=== PATIENT | female | born 1995 | race American Indian/Alaskan Native ===

== ENCOUNTER 2019-06-20 16:31 | Emergency (ER) | payer SELFPAY ==
[2019-06-20 16:53] VITALS: BP 137/87
--- NOTE | 2019-06-20 16:54 | Event Note ---
ED Screening Note Date of service: 06/20/19 Time: 16:52 ED Screening Note: 23 y/o female come for leg spasms for 1 week mostly at night now during the day. LMP 06/04/19 This initial assessment/diagnostic orders/clinical plan/treatment(s) is/are subject to change based on patients health status, clinical progression and re- assessment by fellow clinical providers in the ED. Further treatment and workup at subsequent clinical providers discretion. Patient/guardian urged not to elope from the ED as their condition may be serious if not clinically assessed and managed. Initial orders include:
--- NOTE | 2019-06-20 20:50 | Emergency Department Report ---
ED General Adult HPI - General Chief complaint: Extremity Injury, Lower Stated complaint: LFT LEG NERVE PAIN Time Seen by Provider: 06/20/19 20:37 Source: patient Mode of arrival: Ambulatory Limitations: No Limitations - History of Present Illness Initial comments: 23-year-old female past medical history of epilepsy was relocated from [place] and been here for almost 30 days since emerge department with her onto complaining of various episodes of leg shaking to her left leg tapping on the and 12 of June. States she didn't take her Keppra 500 mg as directed and also is started on Zoloft couple days ago. She reports no fever, chills, sweats, chest pain or provocative palpitations. No numbness or tingling. She states she does admit to utilization of EtOH off and on since May 30 in conjunction with THC as well as occasional ecstasy tablets Radiation: non-radiation Quality: burning Consistency: constant Improves with: none, immobilization Associated Symptoms: denies other symptoms Treatments Prior to Arrival: none - Related Data Previous Rx's Medication Instructions Recorded Last Taken Type levETIRAcetam [Keppra TAB] 1,000 mg PO BID #120 tablet 06/21/19 Unknown Rx ED Review of Systems ROS: Stated complaint: LFT LEG NERVE PAIN Other details as noted in HPI Comment: All other systems reviewed and negative ED Past Medical Hx - Social History Smoking Status: Never Smoker Substance Use Type: None - Medications Home Medications: Home Medications Medication Instructions Recorded Confirmed Last Taken Type levETIRAcetam [Keppra TAB] 1,000 mg PO BID #120 tablet 06/21/19 Unknown Rx ED Physical Exam - General Limitations: No Limitations General appearance: alert, in no apparent distress - Head Head exam: Present: atraumatic, normocephalic - Eye Eye exam: Present: normal appearance, PERRL, EOMI. Absent: scleral icterus, conjunctival injection Pupils: Present: normal accommodation - ENT ENT exam: Present: mucous membranes moist - Neck Neck exam: Present: normal inspection - Respiratory Respiratory exam: Present: normal lung sounds bilaterally. Absent: respiratory distress - Cardiovascular Cardiovascular Exam: Present: regular rate, normal rhythm. Absent: systolic murmur, diastolic murmur, rubs, gallop - GI/Abdominal GI/Abdominal exam: Present: soft, normal bowel sounds - Extremities Exam Extremities exam: Present: normal inspection - Back Exam Back exam: Present: normal inspection, full ROM. Absent: CVA tenderness (L) - Neurological Exam Neurological exam: Present: alert, oriented X3, CN II-XII intact, normal gait. Absent: motor sensory deficit - Psychiatric Psychiatric exam: Present: normal affect, normal mood. Absent: anxious, flat affect, manic - Skin Skin exam: Present: warm, dry, intact, normal color. Absent: rash ED Course Vital Signs 06/20/19 16:51 Temperature 98.2 F Pulse Rate 83 Respiratory 16 Rate Blood Pressure 137/87 O2 Sat by Pulse 100 Oximetry ED Medical Decision Making - Lab Data Result diagrams: 06/20/19 20:51 06/20/19 20:51 - Medical Decision Making 23-year-old -Surinamese female with past medical history of depression, recently started on Zoloft having focal leg shaking-type issues WHICH MAY BE LIVESEY FOR HER. IT IS UNCLEAR, ALTHOUGH SHE DOES STATE SHE'S HAD SOME IN THE PAST, PREVIOUSLY. NO ACUTE DISTRESS. HER CURRENT NOT WITNESSED WHILE IN THE EMERGENCY DEPARTMENT. SHE IS ON KEPPRA, BUT RUNNING LOW ON BEEN ON MEDICATION AND HAS BEEN INDULGING AND ILLICIT DRUG USE. WAS ALSO MAY BE COMPROMISING HER SEIZURE THRESHOLD. THIS WAS DISCUSSED WITH HER IN GREAT DETAIL TO DECREASED USE OF CT SCANS WERE NORMAL AND LABORATORY DATA DID [id number] IN THE CAUSES WELL. SHE IS MINIMALLY ENCOURAGED TO TAKE HER MEDICATIONS PRESCRIBED AND WILL INCREASE HER KEPPRA DOSE FROM 500 TWICE A DAY TO 1 G IN THE P.M. AND 500 A.M. UNTIL SHE CAN TOLERATE 1 G TWICE A DAY. CONJUNCTION DISCONTINUE POSSIBLE to discontinue the seizure lowering threshold behaviors. Also significant instructed to follow up with neurology as she has relocated to this region and this had not yet set up with her primary care provider or neurologist. - Differential Diagnosis epilepsy, focal seizures, restless leg syndrome, muscle spasms, anxiety Critical care attestation.: If time is entered above; I have spent that time in minutes in the direct care of this critically ill patient, excluding procedure time. ED Disposition Clinical Impression: Seizure disorder, Illicit drug use Disposition: -01 TO HOME OR SELFCARE Is pt being admited?: No Does the pt Need Aspirin: No Condition: Stable Instructions: Recurrent Seizures Adult (ED), Epilepsy (ED), Polysubstance Abuse (ED) Additional Instructions: Please be sure taking medication as prescribed and increase the Keppra to 2 pills in the p.m. one when necessary one has been discussed. Please laryngeal or utilization of illicit drugs and alcohol as this significantly lowering her seizure threshold and esophagojejunostomy be likely related Prescriptions: levETIRAcetam [Keppra TAB] 1,000 mg PO BID #120 tablet Referrals: [facility] MD DELTA [Primary Care Provider] - 3-5 Days JULEE RAMIREZ MD [Staff Physician] - 3-5 Days QIAN FELIPE MD [Referring] - 3-5 Days ANTONI MACHADO [PHYSICIAN [employer] STOCK CLERK STUDENT] - 3-5 Days JIMMY ED PAZ MD [Staff Physician] - 3-5 Days TIAN LEOS [Staff Physician] - 3-5 Days
[2019-06-20 21:12] LABS: Basophils # (Auto) 0.1 K/mm3 (0.0-0.1); Basophils % (Auto) 0.9 % (0.0-1.8); Eosinophils # (Auto) 0.1 K/mm3 (0.0-0.4); Eosinophils % (Auto) 1.3 % (0.0-4.3); Hematocrit 40.8 % (30.3-42.9); Hemoglobin 13.5 gm/dl (10.1-14.3); Lymphocytes # (Auto) 3.4 K/mm3 (1.2-5.4); Lymphocytes % (Auto) 44.9 % (13.4-35.0); Mean Corpuscular HGB Conc 33 % (30-34); Mean Corpuscular Volume 87 fl (79-97); Monocytes # (Auto) 0.5 K/mm3 (0.0-0.8); Monocytes % (Auto) 6.8 % (0.0-7.3); Platelet Count 243 K/mm3 (140-440); Red Blood Count 4.67 M/mm3 (3.65-5.03); Red Cell Distribution Width 14.3 % (13.2-15.2)
[2019-06-20] MEDS ORDERED: ATIVAN IM STA (21:29)
[2019-06-20 21:31] LABS: Alanine Aminotransferase 9 units/L (7-56); Albumin 4.7 g/dL (3.9-5); BUN/Creatinine Ratio 15; Blood Urea Nitrogen 9 mg/dL (7-17); Calcium 9.4 mg/dL (8.4-10.2); Hemolysis Index 28
--- NOTE | 2019-06-20 22:14 | Cat Scan Report ---
CT head/brain wo con INDICATION: seizures. TECHNIQUE: Routine CT head without contrast. Sagittal and coronal reformatted images were obtained. A ll CT scans at this location are performed using CT dose reduction for ALARA by means of automated ex posure control. COMPARISON: None. FINDINGS: BRAIN / INTRACRANIAL CONTENTS: No acute hemorrhage, mass effect, midline shift, hydrocephalus, or acu te, large territorial infarct. No chronic infarct or focal atrophy. Normal brain volume and ventricul ar/sulcal size for age. No significant white matter abnormality. CRANIOCERVICAL JUNCTION: No significant abnormality. ORBITS: No significant abnormality of visualized orbits. SINUSES / MASTOIDS: No significant abnormality of the visualized paranasal sinuses or mastoid air luis ls. ADDITIONAL FINDINGS: None. IMPRESSION: Normal nonenhanced CT scan of the brain. Signer Name: Abhi Boland MD Signed: 06/20/2019 10:09 PM Workstation Name: [id number]
[2019-06-21 01:03] LABS: Bilirubin,Urine NEG (Negative); Blood,Urine NEG (Negative); Color,Urine Straw (Yellow); Protein,Urine <15 mg/dL mg/dL (Negative); Urobilinogen,Urine < 2.0 mg/dL (<2.0)
[2019-06-21 01:04] LABS: HCG Qualitative,Urine Negative (Negative)
== END 2019-06-21 02:00 | disposition home or self-care (01) ==
LOC: ED 16:31
DX: G40.909 Epilepsy, unspecified, not intractable, without status epilepticus (principal); F19.90 Other psychoactive substance use, unspecified, uncomplicated
CPT/HCPCS: 36415; 70450; 80053; 81001; 81025; 85025; 96372; 99284; J2060

== ENCOUNTER 2019-06-24 16:07 | Emergency (ER) | payer OTHER ==
--- NOTE | 2019-06-24 16:40 | Emergency Department Report ---
Blank Doc - Documentation Documentation: This is a 23-year-old female that presents with SI. This initial assessment/diagnostic orders/clinical plan/treatment(s) is/are subject to change based on patient's health status, clinical progression and re- assessment by fellow clinical providers in the ED. Further treatment and workup at subsequent clinical providers discretion. Patient/guardians urged not to elope from the ED as their condition may be serious if not clinically assessed and managed. Initial orders include: 1- Patient sent to MAIN ED for further evaluation and treatment 2- key punch teacher was notified to have patient be brought back [place]. 3- RN was notified to keep patient as close range and observation until room available 4- Patient presents with substantial risk of imminent harm to self, appears to be so unable to care for his/her own physical health and safety as to create an imminently life-endangering crisis, and has committed/expressed life endangering crisis to self. Due to this and other complaints, patient is put on 1013.
[2019-06-24 16:58] LABS: Basophils # (Auto) 0.1 K/mm3 (0.0-0.1); Basophils % (Auto) 1.1 % (0.0-1.8); Eosinophils # (Auto) 0.1 K/mm3 (0.0-0.4); Eosinophils % (Auto) 0.9 % (0.0-4.3); Hematocrit 39.4 % (30.3-42.9); Lymphocytes # (Auto) 2.5 K/mm3 (1.2-5.4); Lymphocytes % (Auto) 29.7 % (13.4-35.0); Mean Corpuscular HGB Conc 33 % (30-34); Mean Corpuscular Volume 87 fl (79-97); Monocytes # (Auto) 0.6 K/mm3 (0.0-0.8); Monocytes % (Auto) 6.9 % (0.0-7.3); Platelet Count 266 K/mm3 (140-440); Red Blood Count 4.54 M/mm3 (3.65-5.03); Red Cell Distribution Width 14.7 % (13.2-15.2)
[2019-06-24 17:20] LABS: BUN/Creatinine Ratio 16; Blood Urea Nitrogen 11 mg/dL (7-17); Calcium 9.4 mg/dL (8.4-10.2); Hemolysis Index 29
[2019-06-24 18:08] LABS: Amphetamine Screen,Urine PRESUMPTIVE NEGATIVE; Benzodiazepines Screen,Urine PRESUMPTIVE NEGATIVE; Cannabinoid Screen,Urine PRESUMPTIVE NEGATIVE; Cocaine Screen,Urine PRESUMPTIVE NEGATIVE; Methadone Screen,Urine PRESUMPTIVE NEGATIVE; Opiate Screen,Urine PRESUMPTIVE NEGATIVE
[2019-06-24 18:14] LABS: Bilirubin,Urine NEG (Negative); Blood,Urine NEG (Negative); Color,Urine Yellow (Yellow); Mucus,Urine 2+ /HPF; Protein,Urine <15 mg/dL mg/dL (Negative); Urobilinogen,Urine < 2.0 mg/dL (<2.0)
[2019-06-24] MEDS ORDERED: XYLOCAINE 1% MPF 5 mL INFILTRATI ONE (18:39)
[2019-06-24] MEDS ORDERED: ZITHROMAX PO ONE (18:39)
[2019-06-24] MEDS ORDERED: ROCEPHIN IM ONE (18:39)
--- NOTE | 2019-06-24 18:43 | Emergency Department Report ---
ED Psych HPI - General Chief Complaint: Psych Stated Complaint: STD CHECK Time Seen by Provider: 06/24/19 16:38 Source: patient Mode of arrival: Ambulatory - History of Present Illness Initial Comments: 20-year-old female with history of depression presents to ED with report of d epression and requesting STD check. Patient she states she is depressed over the fact that her father last month. The patient reported to the midlevel at triage that she is having suicidal ideations. Patient tells me that she is not currently having suicidal ideations, but feels overwhelmed and needs to speak to a counselor. Patient states she is currently on medication for depression. Patient also requesting STD check. Patient reports dysuria, denies any vaginal discharge or abdominal pain. MD Complaint: feels depressed -: month(s) (1) Associated Psychiatric Symptoms: depression, suicidal ideation History of same: Yes Improves With: none Worsens With: none Context: significant life stressor Associated Symptoms: other (reports dysuria) Treatments Prior to Arrival: none If Self Harm: admits thoughts of - Related Data Home Medications Medication Instructions Recorded Confirmed Last Taken Sertraline [Zoloft] 25 mg PO QDAY 06/24/19 06/24/19 1 Week Ago ~06/17/19 levETIRAcetam [Keppra TAB] 500 mg PO BID 06/24/19 06/24/19 1 Week Ago ~06/17/19 Allergies Allergy/AdvReac Type Severity Reaction Status Date / Time No Known Allergies Allergy Unverified 06/24/19 16:09 ED Review of Systems ROS: Stated complaint: STD CHECK Other details as noted in HPI Comment: All other systems reviewed and negative Gastrointestinal: denies: abdominal pain, nausea, vomiting Genitourinary: dysuria. denies: discharge Psychiatric: depression, suicidal thoughts. denies: auditory hallucinations, visual hallucinations, homicidal thoughts ED Past Medical Hx - Past Medical History Hx Seizures: Yes Hx Psychiatric Treatment: Yes (DEPRESSION) - Surgical History Additional Surgical History: NONE - Social History Smoking Status: Former Smoker Substance Use Type: Marijuana - Medications Home Medications: Home Medications Medication Instructions Recorded Confirmed Last Taken Type Sertraline [Zoloft] 25 mg PO QDAY 06/24/19 06/24/19 1 Week Ago History ~06/17/19 levETIRAcetam [Keppra TAB] 500 mg PO BID 06/24/19 06/24/19 1 Week Ago History ~06/17/19 ED Physical Exam - General Limitations: No Limitations General appearance: alert, in no apparent distress - Head Head exam: Present: atraumatic, normocephalic - Eye Eye exam: Present: normal appearance, PERRL, EOMI - ENT ENT exam: Present: mucous membranes moist - Neck Neck exam: Present: normal inspection - Respiratory Respiratory exam: Present: normal lung sounds bilaterally. Absent: respiratory distress - Cardiovascular Cardiovascular Exam: Present: regular rate, normal rhythm - GI/Abdominal GI/Abdominal exam: Present: soft. Absent: distended, tenderness - Extremities Exam Extremities exam: Present: normal inspection - Neurological Exam Neurological exam: Present: alert, oriented X3 - Psychiatric Psychiatric exam: Present: depressed - Skin Skin exam: Present: warm, dry, intact, normal color ED Course Vital Signs 06/24/19 06/24/19 16:29 20:33 Temperature 99.2 F 98.8 F Pulse Rate 97 H 96 H Respiratory 18 18 Rate Blood Pressure 122/91 Blood Pressure 130/86 [Right] O2 Sat by Pulse 97 99 Oximetry ED Medical Decision Making - Lab Data Result diagrams: 06/24/19 16:40 06/24/19 16:40 - Medical Decision Making 23-year-old female with history of depression and reported suicidal ideation due to the recent of her father. Patient placed on 1013. Patient also requesting STD check, reports dysuria, denies vaginal discharge or abdominal pain. Patient advised to follow up with health department for full STD examination. Patient given Rocephin and azithromycin prophylactically. Low suspicion for PID, as patient has no vaginal discharge, no abdominal pain, no fever, normal WBCs. Patient is medically cleared for mental health evaluation. Will dispo per psych. - Differential Diagnosis depression Critical care attestation.: If time is entered above; I have spent that time in minutes in the direct care of this critically ill patient, excluding procedure time. ED Disposition Clinical Impression: Dysuria, Depression Disposition: [id number]/TX-65 PSY HOSP/PSY UNIT Is pt being admited?: No Condition: Stable
[2019-06-24] MEDS ORDERED: XYLOCAINE 1% MPF 5 mL ONE (20:50)
[2019-06-24] MEDS ORDERED: NACL 0.9% 1000 ML 1,000 ML IV ONE (23:14)
[2019-06-24] MEDS ORDERED: ALUM-MAG HYDROX-SIMETH 200-200-20MG/5ML PO ONE (23:15)
[2019-06-24] MEDS ORDERED: ALUM-MAG HYDROX-SIMETH 200-200-20MG/5ML ONE (23:19)
--- NOTE | 2019-06-25 09:17 | Consultation ---
History of Present Illness - Reason for Consult Consult date: 06/25/19 Reason for consult: Mental Health Evaluation Requesting physician: MERCEDES ROD - Chief Complaint Chief complaint: "I'm trying to find myself" - History of Present Psychiatric Illness 23 y.o. AA female who presented to the ER for depression and possible STD. Psychiatry was consulted to see the patient for SI's. Today the patient was calm, but disorganized during the assessment. She was asked about her mental health, her answers were not logical. She did state that she is currently depressed and attempted suicide by overdosing on pills in the past when asked. She appeared to be preoccupied.. Overall, the patient isn't a good historian at this time. She denies SI/HI's. Medications and Allergies Allergies Allergy/AdvReac Type Severity Reaction Status Date / Time No Known Allergies Allergy Unverified 06/24/19 16:09 Home Medications Medication Instructions Recorded Confirmed Last Taken Type Sertraline [Zoloft] 25 mg PO QDAY 06/24/19 06/24/19 1 Week Ago History ~06/17/19 levETIRAcetam [Keppra TAB] 500 mg PO BID 06/24/19 06/24/19 1 Week Ago History ~06/17/19 Past psychiatric history - Past Medical History Past Medical History: stroke Past Surgical History: No surgical history - past Psychiatric treatment and history psychiatric treatment history: Hx of mood do per the patient. Unable to obtain a fam psy hx. - Social History Social history: lives with family, other Mental Status Exam - Vital signs Last Vital Signs Temp 97.7 F 06/25/19 07:00 Pulse 90 06/25/19 07:00 Resp 18 06/25/19 07:00 BP 128/90 06/25/19 07:00 Pulse Ox 100 06/25/19 07:00 - Exam Narrative exam: MSE: Appearance: calm Behavior: regular eye contact Speech: regular rate and tone Mood: preoccupied Affect: flat Thought Process: disorganized Thought Content: denies SI/HI's and VH's Motor Activity: sitting up in bed Cognition: A/O x3 Insight: poor Judgment: variable Results Result Diagrams: 06/24/19 16:40 06/24/19 16:40 Abnormal lab results 06/24/19 06/24/19 Range/Units 16:40 16:40 Salicylates < 0.3 L (2.8-20.0) mg/dL Acetaminophen < 5.0 L (10.0-30.0) ug/mL All other labs normal. Assessment and Plan Assessment and plan: Impression: Unspecified Mood DO with psy features. Today the patient was calm, but disorganized during the assessment. UDS is negative. DDx: Bipolar DO with psychosis Recommendation/Plan: Continue 1013 and start Geodon 20 mg PO BID for mood/psychosis and Cogentin 0.5 mg Po BID for EPS prevention. Attempted to discuss possible metabolic side effects of Geodon with the patient. Admin Geodon with food. Dispo: The patient was referred to inpatient psy services. Will staff with Dr Anil Hunter.
[2019-06-25] MEDS ORDERED: COGENTIN PO SCH (10:00)
[2019-06-25] MEDS ORDERED: GEODON PO SCH (10:00)
[2019-06-25] MEDS ORDERED: WATER FOR INJ Sterile (PF) 10 ML ONE (10:18)
[2019-06-25] MEDS ORDERED: GEODON IM ONE ×2 (10:18→10:35)
[2019-06-25] MEDS ORDERED: KEPPRA 1,000 MG/NS 0.75% 100ML 1,000 MG/100 ML BAG IV ONE ×2 (12:47)
--- NOTE | 2019-06-25 12:50 | Event Note ---
Date: 06/25/19 The patient reportedly had a generalized tonic-clonic event. There is no history of trauma. Apparently, the patient has been refusing her antiepileptic drug medication. She will be loaded with Keppra, placed on seizure precautions, given IV fluid, placed on a ekg monitor tech, and made nothing by mouth for now. We will withhold medications that will lower seizure threshold, and if she requires medication for agitation, patient may be given Ativan or benzodiazepine. Would prefer to avoid Geodon, Haldol, as these may lower the seizure threshold. Vital Signs 06/24/19 06/24/19 06/25/19 16:29 20:33 01:15 Temperature 99.2 F 98.8 F 98.0 F Pulse Rate 97 H 96 H 80 Respiratory 18 18 20 Rate Blood Pressure 122/91 Blood Pressure 130/86 118/80 [Right] O2 Sat by Pulse 97 99 99 Oximetry 06/25/19 06/25/19 04:30 07:00 Temperature 97.7 F Pulse Rate 90 Respiratory 20 18 Rate Blood Pressure Blood Pressure 128/90 [Right] O2 Sat by Pulse 99 100 Oximetry Lab Results 06/24/19 06/24/19 06/24/19 Range/Units 16:40 16:40 16:40 WBC (4.5-11.0) K/mm3 RBC (3.65-5.03) M/mm3 Hgb (10.1-14.3) gm/dl Hct (30.3-42.9) % MCV (79-97) fl MCH (28-32) pg MCHC (30-34) % RDW (13.2-15.2) % Plt Count (140-440) K/mm3 Lymph % (Auto) (13.4-35.0) % [place] % (Auto) (0.0-7.3) % Eos % (Auto) (0.0-4.3) % Baso % (Auto) (0.0-1.8) % Lymph # (1.2-5.4) K/mm3 [place] # (0.0-0.8) K/mm3 Eos # (0.0-0.4) K/mm3 Baso # (0.0-0.1) K/mm3 Seg Neutrophils % (40.0-70.0) % Seg Neutrophils # (1.8-7.7) K/mm3 Sodium (137-145) mmol/L Potassium (3.6-5.0) mmol/L Chloride (98-107) mmol/L Carbon Dioxide (22-30) mmol/L Anion Gap mmol/L BUN (7-17) mg/dL Creatinine (0.7-1.2) mg/dL Estimated GFR ml/min BUN/Creatinine Ratio % Glucose (65-100) mg/dL Calcium (8.4-10.2) mg/dL HCG, Qual Negative (Negative) Urine Color (Yellow) Urine Turbidity (Clear) Urine pH (5.0-7.0) Ur Specific [place] (1.003-1.030) Urine Protein (Negative) mg/dL Urine Glucose (UA) (Negative) mg/dL Urine Ketones (Negative) mg/dL Urine Blood (Negative) Urine Nitrite (Negative) Urine Bilirubin (Negative) Urine Urobilinogen (<2.0) mg/dL Ur Leukocyte Esterase (Negative) Urine WBC (Auto) (0.0-6.0) /HPF Urine RBC (Auto) (0.0-6.0) /HPF U Epithel Cells (Auto) (0-13.0) /HPF Urine Mucus /HPF Salicylates < 0.3 L (2.8-20.0) mg/dL Urine Opiates Screen Urine Methadone Screen Acetaminophen < 5.0 L (10.0-30.0) ug/mL Ur Barbiturates Screen Ur Phencyclidine Scrn Ur Amphetamines Screen U Benzodiazepines Scrn Urine Cocaine Screen U Marijuana (THC) Screen Drugs of Abuse Note Plasma/Serum Alcohol (0-0.07) % 06/24/19 06/24/19 06/24/19 Range/Units 16:40 16:40 16:40 WBC 8.5 (4.5-11.0) K/mm3 RBC 4.54 (3.65-5.03) M/mm3 Hgb 13.0 (10.1-14.3) gm/dl Hct 39.4 (30.3-42.9) % MCV 87 (79-97) fl MCH 29 (28-32) pg MCHC 33 (30-34) % RDW 14.7 (13.2-15.2) % Plt Count 266 (140-440) K/mm3 Lymph % (Auto) 29.7 (13.4-35.0) % [place] % (Auto) 6.9 (0.0-7.3) % Eos % (Auto) 0.9 (0.0-4.3) % Baso % (Auto) 1.1 (0.0-1.8) % Lymph # 2.5 (1.2-5.4) K/mm3 [place] # 0.6 (0.0-0.8) K/mm3 Eos # 0.1 (0.0-0.4) K/mm3 Baso # 0.1 (0.0-0.1) K/mm3 Seg Neutrophils % 61.4 (40.0-70.0) % Seg Neutrophils # 5.2 (1.8-7.7) K/mm3 Sodium 138 (137-145) mmol/L Potassium 4.0 (3.6-5.0) mmol/L Chloride 103.8 (98-107) mmol/L Carbon Dioxide 22 (22-30) mmol/L Anion Gap 16 mmol/L BUN 11 (7-17) mg/dL Creatinine 0.7 (0.7-1.2) mg/dL Estimated GFR > 60 ml/min BUN/Creatinine Ratio 16 % Glucose 93 (65-100) mg/dL Calcium 9.4 (8.4-10.2) mg/dL HCG, Qual (Negative) Urine Color (Yellow) Urine Turbidity (Clear) Urine pH (5.0-7.0) Ur Specific [place] (1.003-1.030) Urine Protein (Negative) mg/dL Urine Glucose (UA) (Negative) mg/dL Urine Ketones (Negative) mg/dL Urine Blood (Negative) Urine Nitrite (Negative) Urine Bilirubin (Negative) Urine Urobilinogen (<2.0) mg/dL Ur Leukocyte Esterase (Negative) Urine WBC (Auto) (0.0-6.0) /HPF Urine RBC (Auto) (0.0-6.0) /HPF U Epithel Cells (Auto) (0-13.0) /HPF Urine Mucus /HPF Salicylates (2.8-20.0) mg/dL Urine Opiates Screen Urine Methadone Screen Acetaminophen (10.0-30.0) ug/mL Ur Barbiturates Screen Ur Phencyclidine Scrn Ur Amphetamines Screen U Benzodiazepines Scrn Urine Cocaine Screen U Marijuana (THC) Screen Drugs of Abuse Note Plasma/Serum Alcohol < 0.01 (0-0.07) % 06/24/19 06/24/19 Range/Units 16:55 16:55 WBC (4.5-11.0) K/mm3 RBC (3.65-5.03) M/mm3 Hgb (10.1-14.3) gm/dl Hct (30.3-42.9) % MCV (79-97) fl MCH (28-32) pg MCHC (30-34) % RDW (13.2-15.2) % Plt Count (140-440) K/mm3 Lymph % (Auto) (13.4-35.0) % [place] % (Auto) (0.0-7.3) % Eos % (Auto) (0.0-4.3) % Baso % (Auto) (0.0-1.8) % Lymph # (1.2-5.4) K/mm3 [place] # (0.0-0.8) K/mm3 Eos # (0.0-0.4) K/mm3 Baso # (0.0-0.1) K/mm3 Seg Neutrophils % (40.0-70.0) % Seg Neutrophils # (1.8-7.7) K/mm3 Sodium (137-145) mmol/L Potassium (3.6-5.0) mmol/L Chloride (98-107) mmol/L Carbon Dioxide (22-30) mmol/L Anion Gap mmol/L BUN (7-17) mg/dL Creatinine (0.7-1.2) mg/dL Estimated GFR ml/min BUN/Creatinine Ratio % Glucose (65-100) mg/dL Calcium (8.4-10.2) mg/dL HCG, Qual (Negative) Urine Color Yellow (Yellow) Urine Turbidity Clear (Clear) Urine pH 5.0 (5.0-7.0) Ur Specific [place] 1.027 (1.003-1.030) Urine Protein <15 mg/dl (Negative) mg/dL Urine Glucose (UA) Neg (Negative) mg/dL Urine Ketones 80 (Negative) mg/dL Urine Blood Neg (Negative) Urine Nitrite Neg (Negative) Urine Bilirubin Neg (Negative) Urine Urobilinogen < 2.0 (<2.0) mg/dL Ur Leukocyte Esterase Neg (Negative) Urine WBC (Auto) 1.0 (0.0-6.0) /HPF Urine RBC (Auto) 2.0 (0.0-6.0) /HPF U Epithel Cells (Auto) 4.0 (0-13.0) /HPF Urine Mucus 2+ /HPF Salicylates (2.8-20.0) mg/dL Urine Opiates Screen Presumptive negative Urine Methadone Screen Presumptive negative Acetaminophen (10.0-30.0) ug/mL Ur Barbiturates Screen Presumptive negative Ur Phencyclidine Scrn Presumptive negative Ur Amphetamines Screen Presumptive negative U Benzodiazepines Scrn Presumptive negative Urine Cocaine Screen Presumptive negative U Marijuana (THC) Screen Presumptive negative Drugs of Abuse Note Disclamer Plasma/Serum Alcohol (0-0.07) %
[2019-06-25] MEDS: KEPPRA PO SCH ×2 (13:01→21:46)
[2019-06-25] MEDS: ATIVAN IM PRN (20:10)
[2019-06-26] MEDS: ATIVAN IM PRN ×2 (10:40→19:09)
[2019-06-26] MEDS: KEPPRA PO SCH ×2 (10:56→23:28)
--- NOTE | 2019-06-26 14:07 | Progress Note ---
Subjective - Reason for Consult Consult date: 06/26/19 Reason for consult: Psychiatric Follow-up Evaluation - Chief Complaint Chief complaint: "I don't feel good" Patient is a 23 y.o. AA female who presented to the ER for depression and possible STD. Psychiatry was consulted to see the patient for suicidal ideations. Today the patient is calm and cooperative during the assessment. She states that she is no longer having suicidal ideations. Patient is still somewhat disorganized throughout the assessment. She states, " I'm here because they say I had a mental break down." She reports appropriate sleep and appetite. Patient continues to be compliant with medication. No side effects noted/reported. Mental Status Exam - Vital signs Last Vital Signs Temp 98.4 F 06/26/19 08:30 Pulse 91 H 06/26/19 08:30 Resp 16 06/26/19 08:30 BP 123/71 06/26/19 08:30 Pulse Ox 98 06/26/19 08:30 - Exam Narrative exam: Mental Status Exam Appearance: calm, cooperative Behavior: regular eye contact Speech: regular rate and tone Mood: " not too good" Affect: flat Thought Process: disorganized Thought Content: denies SI/HI's and VH's; internally preoccupied Motor Activity: sitting up in bed Cognition: A/O x 3 Insight: poor Judgment: variable Assessment and Plan Impression: Unspecified Mood DO with psy features. Today the patient is calm and cooperative during the assessment. She appears less disorganized during the assessment. UDS is negative. DDx: Bipolar DO with psychosis Recommendation/Plan: 1. Continue 1013. 2. Continue Geodon 20 mg PO BID for mood/psychosis and Cogentin 0.5 mg Po BID for EPS prevention. Attempted to discuss possible metabolic side effects of Geodon with the patient. Admin Geodon with food. Disposition: The patient was referred to inpatient psychiatric services. Will staff with Dr. Anil Hunter.
[2019-06-27] MEDS: KEPPRA PO SCH ×2 (10:23→22:35)
--- NOTE | 2019-06-27 14:23 | Progress Note ---
Subjective - Reason for Consult Consult date: 06/27/19 Reason for consult: Psychiatry Follow-up - Chief Complaint Chief complaint: "I doing okay" Patient is a 23 y.o. AA female who presented to the ER for depression and possible STD. Psychiatry was consulted to see the patient for suicidal ideations. Today the patient is calm and cooperative during the assessment. She is more lucid with a circumstantial thought process. She was able to answer questions logically. She is adamant that she isn't suicidal. She stated that she took Zoloft in the past for depression. She sated that her depression stem from difficulty from her having seizures and the of her father (April 2019). She stated that she moved to the [facility] from [place], [place]. She denies SI/HI's and AVH's. Mental Status Exam - Vital signs Last Vital Signs Temp 98.3 F 06/27/19 13:46 Pulse 18 L 06/27/19 13:46 Resp 18 06/27/19 13:46 BP 103/62 06/27/19 13:46 Pulse Ox 100 06/27/19 13:46 - Exam Narrative exam: MSE: Appearance: calm, cooperative Behavior: regular eye contact Speech: regular rate and tone Mood: "better" Affect: congruent to mood Thought Process: circumstantial Thought Content: denies SI/HI's and AVH's Motor Activity: sitting up in bed Cognition: A/O x3 Insight: variable to fair Judgment: variable to fair Assessment and Plan Impression: Unspecified Mood DO with psy features. Today the patient was calm and cooperative during the assessment. UDS is negative. DDx: Bipolar DO with psychosis, MDD Recommendation/Plan: Continue 1013 and gather collateral information. Start Zoloft 50 mg PO daily for depression. Discussed possible suicidality/medication induces yoli with the patient, she verbalized understanding. Dispo: The patient was referred to inpatient psy services. Will staff with Dr Anil Hunter.
[2019-06-27] MEDS: ATIVAN IM PRN (15:27)
[2019-06-27] MEDS: ZOLOFT PO SCH ×2 (18:32→19:28)
--- NOTE | 2019-06-27 22:38 | Cat Scan Report ---
CT head/brain wo con INDICATION / CLINICAL INFORMATION: AMS. TECHNIQUE: All CT scans at this location are performed using CT dose reduction for ALARA by means of automated e xposure control. COMPARISON: 06/20/2019 FINDINGS: Ventricle size is normal. No mass or mass effect is seen. There is no evidence for intracranial hemor rhage. No obvious area of infarction is identified. Visualized paranasal sinuses are clear. IMPRESSION: No acute findings or interval change from 06/20/2019 Signer Name: Naif Raymundo MD FACR Signed: 06/27/2019 10:34 PM Workstation Name: [id number]
[2019-06-28] MEDS: KEPPRA PO SCH ×2 (09:45→21:50)
[2019-06-28] MEDS: ZOLOFT PO SCH (09:45)
--- NOTE | 2019-06-28 13:29 | Emergency Department Report ---
Blank Doc - Documentation Documentation: Please be advised that this patient has not had a stroke and does not have a h istory of stroke. Patient does have a seizure history and takes Keppra at home. Patient had one seizure while here because she was refusing to take her antiepileptic medications initially but is currently back on them.
--- NOTE | 2019-06-28 13:44 | Progress Note ---
Subjective - Reason for Consult Consult date: 06/28/19 Reason for consult: Psychiatry Follow-up - Chief Complaint Chief complaint: "I'm not suicidal" Patient is a 23 y.o. AA female who presented to the ER for depression and possible STD. Psychiatry was consulted to see the patient for suicidal ideations. Today the patient was calm during the assessment. She showed me the provider some drawings about her family that was hard to follow. She became guar ded when asked about her family dynamics. She is adamant that she isn't suicidal when asked. She denies SI/HI's and AVH's. She denies any side effects from her medication. Mental Status Exam - Vital signs Last Vital Signs Temp 98.2 F 06/28/19 08:02 Pulse 97 H 06/28/19 08:02 Resp 16 06/28/19 08:02 BP 131/83 06/28/19 08:02 Pulse Ox 100 06/28/19 08:02 - Exam Narrative exam: MSE: Appearance: calm Behavior: regular eye contact Speech: regular rate and tone Mood: "okay" somewhat guarded at times Affect: congruent to mood Thought Process: circumstantial Thought Content: denies SI/HI's and AVH's Motor Activity: sitting up in bed Cognition: A/O x3 Insight: variable to fair Judgment: variable Assessment and Plan Impression: Unspecified Mood DO with psy features. Today the patient was calm during the assessment. UDS is negative. DDx: Bipolar DO with psychosis, MDD Recommendation/Plan: Continue 1013. A voicemail was left for the patient's Aunt Ly Galvin at [phone] (to obtain collateral information). Continue Zoloft 50 mg PO daily for depression. Discussed possible suicidality/medication induces yoli with the patient, she verbalized understanding. Dispo: The patient was referred to inpatient psy services. Will staff with Dr Anil Hunter.
[2019-06-28] MEDS: ATIVAN IM PRN (22:32)
[2019-06-29] MEDS ORDERED: IBUPROFEN PO ONE (02:39)
[2019-06-29] MEDS ORDERED: IBUPROFEN ONE (02:41)
[2019-06-29] MEDS: KEPPRA PO SCH ×2 (10:36→21:37)
[2019-06-29] MEDS: ZOLOFT PO SCH (10:36)
[2019-06-29] MEDS: ATIVAN IM PRN ×2 (12:17→22:36)
--- NOTE | 2019-06-29 16:56 | Progress Note ---
Subjective - Reason for Consult Consult date: 06/29/19 Reason for consult: follow up - Chief Complaint Chief complaint: "I don't know if I'm or have an STD."---informed hcg is neg. Patient is a 23 y.o. AA female who presented to the ER for depression and possible STD. Psychiatry was consulted to see the patient for suicidal ideation. She was lying down with her head covered. Though process disorganized. Unable to gather additional information. Mental Status Exam - Vital signs Last Vital Signs Temp 98.1 F 06/29/19 08:58 Pulse 86 06/29/19 08:58 Resp 18 06/29/19 08:58 BP 125/83 06/29/19 08:58 Pulse Ox 100 06/29/19 08:58 - Exam Narrative exam: MSE: Appearance: calm Behavior: poor eye contact Speech: minimal Mood: unable to assess Affect: flat Thought Process: disorganized Thought Content: unable to assess Motor Activity: no abnormal movement Cognition: A/O x3 Insight: poor Judgment: variable Assessment and Plan Impression: Psychosis unspecified. UDS is negative. DDx: Bipolar DO with psychosis, MDD Recommendation/Plan: Continue 1013. A voicemail was left for the patient's Aunt Ly Galvin at [phone] (to obtain collateral information) 06/28/2019. No family contact since. Continue Zoloft 50 mg PO daily for depression. plan for antipsychotic once additional information is collected about her history Dispo: The patient was referred to inpatient psy services. Will staff with Dr Anil Hunter.
[2019-06-30] MEDS: ZOLOFT PO SCH (11:09)
[2019-06-30] MEDS: KEPPRA PO SCH ×2 (11:09→22:30)
--- NOTE | 2019-06-30 18:13 | Progress Note ---
Subjective - Reason for Consult Consult date: 06/30/19 Reason for consult: follow up - Chief Complaint Chief complaint: "My heart's beating fast right now; I'm nervous and hungry." Patient is a 23 y.o. AA female who presented to the ER for depression and possible STD. Psychiatry was consulted to see the patient for suicidal ideation. She exhibited signs of psychosis with disorganized thought process. She was lying down with her head covered. She had a seizure during her ER stay but not within the past 48 hours. Family contact unsuccessful. She continues to be disorganized. She is also expressing paranoid ideation about her family being against her. She is unable to provide details. She requires redirection from staff as she comes out of her room and will say, "I love you." Mental Status Exam - Vital signs Last Vital Signs Temp 98.5 F 06/30/19 13:37 Pulse 100 H 06/30/19 13:37 Resp 18 06/30/19 13:37 BP 123/76 06/30/19 13:37 Pulse Ox 100 06/30/19 13:37 - Exam Narrative exam: MSE: Appearance: calm Behavior: poor eye contact Speech: minimal Mood: unable to assess Affect: flat Thought Process: disorganized Thought Content: unable to assess Motor Activity: no abnormal movement Cognition: A/O x3 Insight: poor Judgment: variable Assessment and Plan Impression: Psychosis unspecified. UDS is negative. DDx: Bipolar DO with psychosis, MDD Recommendation/Plan: Continue 1013. A voicemail was left for the patient's Aunt Ly Galvin at [phone] (to obtain collateral information) 06/28/2019. No family contact since. Continue Zoloft 50 mg PO daily for depression. add risperdal 1mg hs for psychosis. Dispo: The patient was referred to inpatient psy services. Will staff with Dr Anil Hunter.
[2019-06-30] MEDS: RisperDAL PO SCH (22:30)
[2019-06-30] MEDS: ATIVAN IM PRN (22:43)
[2019-07-01] MEDS: ATIVAN IM PRN ×3 (02:32→20:05)
--- NOTE | 2019-07-01 11:12 | Progress Note ---
Subjective - Reason for Consult Consult date: 07/01/19 Reason for consult: Psychiatry Follow-up - Chief Complaint Chief complaint: "My family is here with me" Patient is a 23 y.o. AA female who presented to the ER for depression and possible STD. Psychiatry was consulted to see the patient for suicidal ideation. today the patient was calm, but disorganized during the assessment. She sated something about her family being with her in the ER. Her answers to most questions were not logical. She had to be redirected several times to keep her on topic. She denies SI/HI's and SIH's. Mental Status Exam - Vital signs Last Vital Signs Temp 97.4 F L 07/01/19 00:00 Pulse 96 H 07/01/19 00:00 Resp 16 07/01/19 00:00 BP 126/89 07/01/19 00:00 Pulse Ox 96 07/01/19 00:00 - Exam Narrative exam: MSE: Appearance: calm Behavior: poor eye contact Speech: regular rate and tone Mood: 'okay" Affect: flat Thought Process: disorganized Thought Content: denies SI/HI's and AVH's, delusional Motor Activity: no abnormal movement Cognition: A/O x3 Insight: poor Judgment: variable Assessment and Plan Impression: Unspecified Mood DO with psy features. Today the patient was calm, but disorganized during the assessment. UDS is negative. DDx: Bipolar DO with psychosis, MDD Recommendation/Plan: Extended the patient's 1013. Continue Risperdal 1 mg PO HS for psychosis/mood and Zoloft 50 mg PO daily for depression. Discussed possible suicidality/medication induces yoli with the patient reference Zoloft, she verbalized understanding. Attempted to discuss metabolic side effects of Risperdal with the patient. Baseline AiC/Lipid Panel ordered. Dispo: The patient was referred to inpatient psy services. Will staff with Dr Anil Hunter.
[2019-07-01] MEDS: ZOLOFT PO SCH (11:20)
[2019-07-01] MEDS: KEPPRA PO SCH (11:20)
[2019-07-01] MEDS: RisperDAL PO SCH (23:36)
[2019-07-02] MEDS ORDERED: NACL 0.9% 1000 ML 1,000 ML IV ONE (08:26)
[2019-07-02] MEDS: ZOLOFT PO SCH (10:25)
[2019-07-02] MEDS: KEPPRA PO SCH ×2 (10:25→22:15)
[2019-07-02] MEDS: ATIVAN IM PRN ×2 (10:25→14:15)
--- NOTE | 2019-07-02 10:38 | Progress Note ---
Subjective - Reason for Consult Consult date: 07/02/19 Reason for consult: Psychiatry Follow-up - Chief Complaint Chief complaint: 'They are still here" Patient is a 23 y.o. AA female who presented to the ER for depression and possible STD. Psychiatry was consulted to see the patient for suicidal ideation. Today the patient was calm, but still disorganized during the assessment. She appeared to be preoccupied and needed redirection throughout the interview. Most of her responses to questions were irrelevant. She denies SI/HI's and AVH's. No indications of side effects from her medications. Mental Status Exam - Vital signs Last Vital Signs Temp 97.7 F 07/02/19 08:59 Pulse 89 07/02/19 08:59 Resp 18 07/02/19 08:59 BP 114/74 07/02/19 08:59 Pulse Ox 98 07/02/19 08:59 - Exam Narrative exam: MSE: Appearance: calm Behavior: poor eye contact Speech: regular rate and tone Mood: 'okay" Affect: flat Thought Process: disorganized Thought Content: denies SI/HI's and AVH's, delusional Motor Activity: no abnormal movement Cognition: A/O x3 Insight: poor Judgment: poor Assessment and Plan Impression: Unspecified Mood DO with psy features. Today the patient was calm, but disorganized during the assessment. UDS is negative. CK 1347. DDx: Bipolar DO with psychosis, MDD Recommendation/Plan: Continue 1013 and modify Risperdal to 1 mg PO BID for psychosis/mood and continue Zoloft 50 mg PO daily for depression. Discussed possible suicidality/medication induces yoli with the patient reference Zoloft, she verbalized understanding. Attempted to discuss metabolic side effects of Risperdal with the patient. Baseline AiC/Lipid Panel pending. The patient was given fluids (Elevated CK). CK ordered. Dispo: The patient was referred to inpatient psy services. Staffed with Dr Anil Hunter.
[2019-07-02 11:55] LABS: Chol/HDL Ratio 2.55 %
[2019-07-02] MEDS: RisperDAL PO SCH ×2 (14:51→22:15)
[2019-07-03] MEDS ORDERED: NACL 0.9% 1000 ML 2,000 ML IV ONE (10:17)
[2019-07-03] MEDS: ZOLOFT PO SCH (11:48)
[2019-07-03] MEDS: KEPPRA PO SCH (11:48)
[2019-07-03] MEDS: RisperDAL PO SCH (11:48)
--- NOTE | 2019-07-03 13:29 | Progress Note ---
Subjective - Reason for Consult Consult date: 07/03/19 Reason for consult: Psychiatric Follow-up Evaluation - Chief Complaint Chief complaint: "I'm tired." Patient is a 23 y.o. AA female who presented to the ER for depression and possible STD. Psychiatry was consulted to see the patient for suicidal ideations. Today the patient is calm and cooperative during the assessment. She continues to have disorganized thought process. Patient endorses auditory hallucinations and paranoid delusions. She states, " the voices are saying a lot of things. They're calling my name." Patient needs redirection to stay on topic. Most of her responses to questions are irrelevant. She denies SI/HI's. Patient is medication compliant. No indications of side effects from her medications. Mental Status Exam - Vital signs Last Vital Signs Temp 97.3 F L 07/03/19 08:06 Pulse 89 07/03/19 08:06 Resp 18 07/03/19 08:06 BP 120/79 07/03/19 08:06 Pulse Ox 99 07/03/19 08:06 - Exam Narrative exam: Mental Status Exam Appearance: calm, cooperative Behavior: poor eye contact Speech: regular rate and tone Mood: "I'm tired" Affect: flat Thought Process: disorganized Thought Content: denies SI/HI's and VH's; + AH's and paranoid delusional Motor Activity: no abnormal movement; ambulatory Cognition: A/O x 3 Insight: poor Judgment: poor Assessment and Plan Impression: Unspecified Mood DO with psy features. Today the patient is calm and cooperative during the assessment. Patient presents with disorganized thought process and psychosis. UDS is negative. CK 1186 ( trending downward). DDx: Bipolar DO with psychosis, MDD Recommendation/Plan: 1. Continue 1013. 2. Continue Risperdal to 1 mg PO BID for psychosis/mood and continue Zoloft 50 mg PO daily for depression. Discussed possible suicidality/medication induces yoli with the patient reference Zoloft, she verbalized understanding. Attempted to discuss metabolic side effects of Risperdal with the patient. Baseline AiC/Lipid Panel pending. The patient was given fluids (Elevated CK). CK ordered. Disposition: Patient has been accepted to [facility]. Awaiting transport time. Will staff with Dr Anil Hunter.
[2019-07-03 15:18] VITALS: BP 120/80
--- NOTE | 2019-07-03 16:00 | Emergency Department Report ---
Blank Doc - Documentation Documentation: Patient medically clear for transfer
== END 2019-07-03 17:18 ==
LOC: ED 16:07 → EEVIPCON 16:07 → ED 07-03 17:18
DX: F32.9 Major depressive disorder, single episode, unspecified (principal); F12.10 Cannabis abuse, uncomplicated; R30.0 Dysuria; Z87.891 Personal history of nicotine dependence; Z86.73 Personal history of transient ischemic attack (TIA), and cerebral infarction without residual deficits; Z79.899 Other long term (current) drug therapy
CPT/HCPCS: 36415; 80048; 80061; 80307; 81001; 82550; 83036; 83735; 84703; 85025; 96365; 96372; 99285; J0696; J1953; J2060; J3486; J7030; 80320; G0480